=== PATIENT | female | born 1940 | race Caucasian/White ===

== ENCOUNTER 2016-08-08 08:15 | Day surgery (SDC) | payer OTHER ==
[2016-08-06 12:57] LABS: HEMOGLOBIN 11.9 g/dL (12.0-16.0)
[2016-08-06 13:15] LABS: CALCIUM, SERUM 8.9 MG/DL (8.5-10.4); CHLORIDE, SERUM 107 MMOL/L (96-112); CO2 (CARBON DIOXIDE) 27 MMOL/L (24-34); GFR AFRICAN AMERICAN 44 ML/MIN (>=60); GFR NON AFRICAN AMERICAN 38 ML/MIN (>=60); GLUCOSE, SERUM 115 MG/DL (60-99); POTASSIUM, SERUM 4.4 MMOL/L (3.5-5.3); SODIUM, SERUM 141 MMOL/L (135-148)
[2016-08-06 13:16] LABS: BUN (BLOOD UREA NITROGEN) 26 MG/DL (6-23); CREATININE 1.37 MG/DL (0.55-1.02)
--- NOTE | ~2016-08-08 | OP ---
Record Of Operation [facility] [address] [place]. [address] NAME: SCOTT HEATH : 44 STATUS : REG [facility]#: [id number] AGE: 75 ADM/REG DATE : 08/08/16 MR#: [id number] REPORT SERV DATE: 08/08/16 DICTATED BY: ENRIQUE GARNETT DATE: 08/08/16 REPORT STATUS : Draft TRANSCRIBED BY: MODL DATE: 08/08/16 DATE OF PROCEDURE: 08/08/2016 PREOPERATIVE DIAGNOSES: 1. Nonhealing left lower extremity radiation/venous ulcer after therapy for basal cell cancer. 2. New left lower extremity nodular skin lesion. 3. Hypertension. 4. Hyperlipidemia. POSTOPERATIVE DIAGNOSES: 1. Nonhealing left lower extremity radiation/venous ulcer after therapy for basal cell cancer. 2. New left lower extremity nodular skin lesion. 3. Hypertension. 4. Hyperlipidemia. PROCEDURE: 1. Excision and fulguration of left lower extremity nodular skin lesion with Pathology consult. 2. Split-thickness skin graft of left lower extremity nonhealing radiation/venous ulcer (1.8 x 2.0 cm). SURGEON: Enrique Garnett M.D. VP ACCOUNT DIRECTOR: Daren. COMPLICATIONS: None. DRAINS: None. ESTIMATED BLOOD LOSS: 5 mL. FINDINGS: The patient is known to have a nonhealing recurrent left lower extremity ulcer after basal cell cancer therapy and radiation with venous hypertension. She had the wound prepped to healthy granulating tissue and had a 12,000th of an inch split-thickness skin graft. OPERATIVE TECHNIQUE: The patient was brought to the operating room and placed on the table in supine position. She had preoperative antibiotics. She had sequential hose in place. She voided prior to the procedure. She underwent general endotracheal anesthesia and was prepped and draped in sterile fashion, and time-out was completed. The patient's left lower extremity ulcer was debrided sharply to removal all the slough from biofilm until healthy granulating tissue was identified. The wound was measured at 1.8 x 2.0 cm. The depth was not measured for purposes of the skin graft. At this point, the patient's left medial thigh was moistened with mineral oil, and the skin was harvested 12,000th of an inch thick for Record Of Operation [facility] [address] [place]. [address] NAME: SCOTT HEATH : 44 STATUS : REG [facility] PAT#: [id number] AGE: 75 ADM/REG DATE : 08/08/16 MR#: [id number] REPORT SERV DATE: 08/08/16 DICTATED BY: ENRIQUE GARNETT DATE: 08/08/16 REPORT STATUS : Draft TRANSCRIBED BY: MODL DATE: 08/08/16 approximately 4 cm. The graft was then scored with multiple 15 blade knife incisions for drainage, and the entire graft was then placed over the ulcer with the chronic radiated periwound tissue. It was secured to the skin with interrupted 3-0 Vicryl sutures, followed by a Restore Contact Layer and Xeroform gauze. The patient will be taken to the operating room for an Unna boot placement of the left lower extremity to prevent swelling. The donor site was noted to be hemostatic, and a piece of Xeroform and an Aquacel Ag surgical dressing were applied. She tolerated the procedure well. She was extubated and taken to recovery room in stable condition. All sponge and needle counts were reported as correct. /NATALYA Enrique Garnett M.D. / [id number] CC: Emperatriz Drake M.D.
[~2016-08-08 08:15] MED LIST: ACET500CAP PO; ADVIL PO; COMPOUND HORMONE; DIOVAN HC1 PO; ERIVEDGE150 MG PO; FERROUS GLUC324 MG PO; FLEX PO; HALF81 PO; KDUR20 PO; LIPITOR20 PO; LORTAB 5 PO; MAGNESIUM PO; NITROSTAT0.4 MG SL; STRESS600T PO; TRAN200 PO; TRAZODONE150 MG PO; X5 PO; ZOL50 PO; [UNRECOGNIZED DRUG - OTHER]
== END 2016-08-08 21:37 | disposition home or self-care (01) ==
LOC: SDC 08:15
PROVIDERS: Surgery
PROC: 0HBJXZZ Excision of Left Upper Leg Skin, External Approach (ICD-10-PCS; 2016-08-08)
PROC: 0HRLX74 Replacement of Left Lower Leg Skin with Autologous Tissue Substitute, Partial Thickness, External Approach (ICD-10-PCS; principal; 2016-08-08 10:15)
DX: D04.72 Carcinoma in situ of skin of left lower limb, including hip (principal); L57.0 Actinic keratosis; L59.8 Other specified disorders of the skin and subcutaneous tissue related to radiation; Z92.3 Personal history of irradiation; Z85.828 Personal history of other malignant neoplasm of skin; I10 Essential (primary) hypertension; E78.5 Hyperlipidemia, unspecified; E78.00 Pure hypercholesterolemia, unspecified; M10.9 Gout, unspecified; M19.90 Unspecified osteoarthritis, unspecified site; K59.00 Constipation, unspecified; D64.9 Anemia, unspecified; F41.9 Anxiety disorder, unspecified; Z88.0 Allergy status to penicillin; Z91.040 Latex allergy status; Z79.899 Other long term (current) drug therapy; Z98.49 Cataract extraction status, unspecified eye; Z96.1 Presence of intraocular lens; Z97.2 Presence of dental prosthetic device (complete) (partial); Z90.710 Acquired absence of both cervix and uterus; Z98.890 Other specified postprocedural states
CPT/HCPCS: 80048; 85014; 85018; 88305; 93005; J0690; J2250; J2370; J2405; J3010